=== PATIENT | female | born 1965 | race Caucasian/White ===

== ENCOUNTER 2017-06-14 17:48 | Emergency (ER) | payer MEDICARE, MEDICAID ==
[~2017-06-14] VITALS: Ht 172.7 cm; Wt 90.0 kg
[2017-06-14 17:53] VITALS: BP 133/73; PULSE 84; RESP 18; O2SAT 97
[2017-06-14] MEDS ORDERED: GABA300C5 PO (20:17)
[2017-06-14] MEDS ORDERED: ZONI100C2 PO (20:17)
[2017-06-14] MEDS ORDERED: TIZA4CAP3 PO (20:17)
[2017-06-14] MEDS ORDERED: AMBI10TA PO (20:17)
[2017-06-14] MEDS ORDERED: ARIP1TAB11 PO (20:17)
[2017-06-14] MEDS ORDERED: PROZ40CA PO (20:17)
[2017-06-14] MEDS ORDERED: CLON1 PO (20:17)
[2017-06-14] MEDS ORDERED: WELLTAB39 PO (20:17)
[2017-06-14] MEDS ORDERED: PROZ20CA11 PO (20:17)
--- NOTE | 2017-06-14 20:42 | PD ---
HPI Chief Complaint: Fall Time Seen by Provider: 20:21 Travel History International Travel<30 days: No Contact w/Intl Traveler<30days: No Traveled to known affect area: No History of Present Illness HPI Apparently the patient was walking down stairs when her great taking started to run down the stairs and she tripped over and landed awkwardly on her left foot/ ankle. Pain increased with weightbearing and with movement, 8 out of 10 with movement, about 5 out of 10 when laying still. Patient denies any laceration of the skin around her left lower extremity. Patient denies any loss of consciousness, but she also denies any other area being hurt. States allergy to erythromycin Past medical history significant for migraine, bipolar, thrombocytopenia. PFSH Past Medical History Blood Disorders: Yes (thrombocytopenia) Anxiety: Yes Depression: Yes Diminished Hearing: No Medical other: Yes (thrombocytopenia) Migraines: Yes Influenza Vaccination: No ?: Not Social History Alcohol Use: Yes (occas) Tobacco Use: No Substance Use: No Allergies-Medications (Allergen,Severity, Reaction): Coded Allergies: erythromycin base (Unverified Allergy, Severe, 06/14/17) Reported Meds & Prescriptions Reported Meds & Active Scripts Active Reported Ambien (Zolpidem Tartrate) 10 Mg Tab 10 Mg PO HS PRN Aripiprazole 5 Mg Tab 5 Mg PO DAILY Zonisamide 100 Mg Cap 300 Mg PO HS Klonopin (Clonazepam) 1 Mg Tab 1 Mg PO TID Wellbutrin Xl 24 HR (Bupropion HCl) 300 Mg Tab 300 Mg PO DAILY Tizanidine (Tizanidine HCl) 4 Mg Cap 8 Mg PO HS Gabapentin 300 Mg Cap 300 Mg PO BID Prozac (Fluoxetine HCl) 20 Mg Cap 20 Mg PO HS Prozac (Fluoxetine HCl) 40 Mg Cap 40 Mg PO DAILY Review of Systems General / Constitutional: No: Fever Eyes: No: Visual changes HENT: No: Headaches Cardiovascular: No: Chest Pain or Discomfort Respiratory: No: Shortness of Breath Gastrointestinal: No: Abdominal Pain Genitourinary: No: Dysuria Musculoskeletal: Positive: Limited ROM Skin: No Rash Neurologic: No: Weakness Psychiatric: No: Depression Endocrine: No: Polydipsia Hematologic/Lymphatic: No: Easy Bruising Physical Exam Narrative GENERAL: SKIN: Warm and dry. HEAD: Atraumatic. Normocephalic. EYES: Pupils equal and round. No scleral icterus. No injection or drainage. ENT: No nasal bleeding or discharge. Mucous membranes pink and moist. NECK: Trachea midline. No JVD. CARDIOVASCULAR: Regular rate and rhythm. RESPIRATORY: No accessory muscle use. Clear to auscultation. Breath sounds equal bilaterally. GASTROINTESTINAL: Abdomen soft, non-tender, nondistended. Hepatic and splenic margins not palpable. MUSCULOSKELETAL: Extremities without clubbing, cyanosis, or edema. No obvious deformities. Mild edema noted to the lateral malleolus, as well as dorsum of her foot, although no deformity was noted at the level of the knee (negative anterior and posterior drawer sign, negative tenderness to palpation over patella, negative tenderness to palpation over MCL and LCL.) NEUROLOGICAL: Awake and alert. No obvious cranial nerve deficits. Motor grossly within normal limits. Five out of 5 muscle strength in the arms and legs. Normal speech. PSYCHIATRIC: Appropriate mood and affect; insight and judgment normal. Data Data Last Documented VS Vital Signs Date Time Temp Pulse Resp B/P (MAP) Pulse Ox O2 Delivery O2 Flow Rate FiO2 06/14/17 20:08 69 20 98 Room Air 06/14/17 17:53 133/73 (93) Orders Orders Ankle, Limited (Ap&Lat) (06/14/17 20:32) Foot, Complete ([id number]) (06/14/17 20:32) Tibia/Fibula (Ap/Lat) (06/14/17 20:32) Ice/Cold Pack (06/14/17 20:32) MDM Medical Decision Making Medical Screen Exam Complete: Yes Emergency Medical Condition: Yes Medical Record Reviewed: Yes Differential Diagnosis Fracture versus dislocation versus contusion Narrative Course Ankle x-ray, foot x-ray, and tibia fibula x-ray read by radiologist as negative for any fracture or dislocation. Diagnosis Primary Impression: Left lower extremity contusion Patient Instructions: Contusion in Adults (ED), General Instructions Disposition: 01 DISCHARGE HOME Condition: Stable Tang Rossi MD Jun 14, 2017 20:42
--- NOTE | 2017-06-14 21:21 | RADRPT ---
EXAM DATE/TIME: 06/14/2017 21:01 [facility] COMPARISON: No previous studies available for comparison. INDICATIONS : Left anterior ankle pain, fell MEDICAL HISTORY : None. SURGICAL HISTORY : None. ENCOUNTER: Initial ACUITY: 1 day PAIN SCORE: 9/10 LOCATION: Left Ankle FINDINGS: Two view exam was performed of the left ankle. The bony structures are in normal alignment. No evid ence of fracture, dislocation, or soft tissue swelling. No radiopaque foreign bodies are seen. Bony mineralization is normal. CONCLUSION: Negative for fracture or dislocation. Follow up in 7-10 days is suggested if symptoms persist. Ousmane Tran MD FACR on June 14, 2017 at 21:18 Board Certified Radiologist. This report was verified electronically.
--- NOTE | 2017-06-14 21:21 | RADRPT ---
EXAM DATE/TIME: 06/14/2017 21:02 [facility] COMPARISON: No previous studies available for comparison. INDICATIONS : Pain left anterior foot and toes, fell MEDICAL HISTORY : None. SURGICAL HISTORY : None. ENCOUNTER: Initial ACUITY: 1 day PAIN SCORE: 9/10 LOCATION: Left Foot FINDINGS: Three view examination of the left foot demonstrates no soft tissue swelling, dislocation, or fractur e. The tarsal bones appear intact. The interphalangeal and metatarsophalangeal joints are intact. The calcaneus is intact. Bony mineralization is normal. CONCLUSION: Negative for fracture or dislocation. Follow up in 7-10 days is suggested if symptoms persist. Ousmane Tran MD FACR on June 14, 2017 at 21:17 Board Certified Radiologist. This report was verified electronically.
--- NOTE | 2017-06-14 21:21 | RADRPT ---
EXAM DATE/TIME: 06/14/2017 21:00 [facility] COMPARISON: No previous studies available for comparison. INDICATIONS : Left proximal and distal tibia pain, fell MEDICAL HISTORY : None. SURGICAL HISTORY : None. ENCOUNTER: Initial ACUITY: 1 day PAIN SCORE: 8/10 LOCATION: Left Tibia FINDINGS: Two view examination of the left tibia demonstrates no evidence of fracture or dislocation. Bony min eralization is normal. The soft tissue structures are intact. CONCLUSION: Negative for fracture or dislocation. Follow up in 7-10 days is suggested if symptoms persist. Ousmane Tran MD FACR on June 14, 2017 at 21:18 Board Certified Radiologist. This report was verified electronically.
[2017-06-14] MEDS ORDERED: CYCL10TA PO (21:25)
[2017-06-14] MEDS ORDERED: KETO10 PO (21:25)
== END 2017-06-14 22:03 | disposition home or self-care (01) ==
LOC: NEPD 17:48
DX: S80.12XA Contusion of left lower leg, initial encounter (principal); W10.9XXA Fall (on) (from) unspecified stairs and steps, initial encounter; D69.6 Thrombocytopenia, unspecified; F41.9 Anxiety disorder, unspecified; F32.9 Major depressive disorder, single episode, unspecified
CPT/HCPCS: 73590; 73600; 73630; 99283